=== PATIENT | male | born 1990 | race Two or more races ===

== ENCOUNTER 2019-02-28 10:34 | Inpatient (IN) | payer OTHER ==
[~2019-02-28] VITALS: Ht 170.2 cm; Wt 66.7 kg
[2019-02-28] MEDS ORDERED: HUMALOG100 UNIT/1 (10:55)
--- NOTE | 2019-02-28 10:55 | NUR ---
PTE INDICA QUE LLEVA 2 MANNING SIN INSULINA. PTE REIFERE VOMITOS DESDE LINDA 02/28/19. PTE ALERTA CONSCIENTE Y ORIENTADO X3
--- NOTE | 2019-02-28 11:18 | NUR ---
SE ORIENTA PTE Y FAMILIAR SOBRE EL TRATAMIENTO ORDENADO POR EL DR NUNEZ PTE ALERTA Y CONCIENTE POR 3 SE REALIZA MUESTRAS DE LABORIO Y SE ADMINISTRAN MEDICAMENTO AMAURY ORDENADO PTE SE MANTIENE EN OBSERVACION Y BAJO TRATAMIENTO.
--- NOTE | 2019-02-28 13:46 | NUR ---
1250 PACIENTE ES TRASLADADO A AREA DE CRITICO CAMA #1. SE CONECTA A MONITOR CARDIACO Y OXIMETRIA CON ALARMAS AUDIBLES. CANULA NASAL A 2 LTS ES COLOCADA. SE OBSERVA CANALIZACION CON EDEMA LEVE, SE REMUEVE CANALIZACION Y SE REALIZAN DOS CANALIZACIONES EN ANTEBRAZO DERECHO, AMBAS CANALIZACIONES LIBRES DE EDEMA Y/O ENROJECIMIENTO. SE COLOCA DRIP DE INSULINA REGULAR 100 UNIDADES/100 ML NSS @ 10ML/HR Y 0.9%NSS @ 200 ML/HR. DXT MEDIDO Y DOCUMENTADO. SE MANTIENE BAJO OBSERVACION POR CAMBIOS.
--- NOTE | 2019-02-28 14:08 | NUR ---
SE COLOCA SIMONS AMAURY ORDEN MEDICA Y SIGUIENDO MEDIDAS ASEPTICAS Y ESTERILERS, PTE TOLERA PROCEDIMIENTO. AL MOMENTO ELIMINA 500ML APROXIMADAMENTE COLOR AMARILLO LLUVIA. SE MANTIENE BAJO OBSERVACION CONECTADO A MONITOR CARDIACO Y OXIMETRIA DE PULSO.
--- NOTE | 2019-02-28 15:17 | NUR ---
SE RECIBE MASCULINO ALERTA Y ORIENTADO POR JACQUELINE ESFERAS, EN CAMA CON BARANDAS SEGURAS Y ELEVADAS. CONECTADO A MONITOR CARDIACO CON OXIMETRIA DE PULSO. AREA DE VENOPUNCION GARRY DE EDEMA O ENROJECIMIENTO. RECIBIENDO 0.9% NSS @ 200ML/HR Y DRIP DE INSULINA REGULAR 100UNITS/100ML @ 10 ML/HR. PRESENTA SIMONS PATENTE DRENANDO ORINA COLOR AMARILLO LLUVIA. PACIENTE PRESENTA NAUSEAS CONTINUAS. SE JOHN S/V Y SE REPORTAN. SE MANTIENE EN OBSERVACION POR CAMBIOS Y EN ESPERA DE INTERNISTA.
--- NOTE | 2019-02-28 15:36 | NUR ---
SE RELAIZA DXT OBTENIENDO RESULTADO EN 161. SE NOTIFICA A COLON QUIEN ORDENA QUE SE DISMINUYA RATE DE DRIP DE INSULINA 100UNITS/100ML A 3 ML/HR.
== END 2019-03-04 19:22 | disposition home or self-care (01) | DRG 638 ==
LOC: ER 10:34 → ICU-2 16:25 → MEDJ 16:25
PROVIDERS: ADMIT Specialist
PROC: 4A033R1 Measurement of Arterial Saturation, Peripheral, Percutaneous Approach (ICD-10-PCS; principal; 2019-02-28)
PROC: BW40ZZZ Ultrasonography of Abdomen (ICD-10-PCS; 2019-02-28)
DX: E10.10 Type 1 diabetes mellitus with ketoacidosis without coma (principal); N17.8 Other acute kidney failure; E86.0 Dehydration; E10.65 Type 1 diabetes mellitus with hyperglycemia; K29.70 Gastritis, unspecified, without bleeding

== ENCOUNTER → 2020-04-28 | Outpatient (CLI) | payer OTHER ==
[~2020-04-28] MED LIST: HUMALOG100 UNIT/1
== END | disposition home or self-care (01) ==
LOC: PPH VACUNA 09:00
DX: Z23 Encounter for immunization (principal)

== ENCOUNTER 2021-09-08 16:08 | Emergency (ER) | payer OTHER ==
[~2021-09-08] VITALS: Ht 170.2 cm; Wt 75.7 kg
== END 2021-09-08 18:41 | disposition home or self-care (01) ==
LOC: ER 16:08
DX: S61.211A Laceration without foreign body of left index finger without damage to nail, initial encounter (principal); W26.8XXA Contact with other sharp object(s), not elsewhere classified, initial encounter; Y93.9 Activity, unspecified; Y92.69 Other specified industrial and construction area as the place of occurrence of the external cause; Y99.9 Unspecified external cause status

== ENCOUNTER 2022-03-30 08:46 | Emergency (ER) | payer OTHER ==
[~2022-03-30] VITALS: Ht 170.2 cm; Wt 72.6 kg
== END 2022-03-30 16:17 | disposition home or self-care (01) ==
LOC: ER 08:46 → EDBD 08:58 → ER 16:17
DX: R19.7 Diarrhea, unspecified (principal); E11.9 Type 2 diabetes mellitus without complications; Z79.4 Long term (current) use of insulin